=== PATIENT | male | born 1995 | race Caucasian/White ===

== ENCOUNTER 2022-04-13 22:36 | Emergency (ER) | payer BC, SELFPAY ==
[2022-04-13] MEDS ORDERED: Clindamycin/D5W 900 MG in Premix Bag 1 BAG IVPB SCH (23:45)
[2022-04-13] MEDS ORDERED: Morphine 4 MG/ML VIAL ONE (23:47)
[2022-04-13] MEDS ORDERED: Lorazepam 2 MG/ML VIAL ONE (23:48)
[2022-04-14] LABS: #Basophils 0.1 10x3/uL (0.0-0.2); #Eosinphils 0.1 10x3/uL (0.0-0.5); #Monocytes 1.3 10x3/uL (0.0-1.1); #Neutrophils 7.5 10x3/uL (1.5-8.4); %Basophils 0.4 % (0.0-2.0); %Lymphocytes 31.8 % (18.0-47.0); %Monocytes 9.9 % (0.0-10.0); %Neutrophils 56.4 % (40.0-75.0); Hemoglobin 15.8 g/dL (13.5-17.5); Mean Corpuscular HGB CONC 35.3 g/dL (32.0-36.0); Mean Corpuscular Hemoglobin 29.3 pg (27.0-33.0); Mean Corpuscular Volume 82.9 fl (81.2-95.1); Mean Platelet Volume 10.2 fl (7.4-10.4); Platelet Count 284 10x3/uL (150-450); RBC Distribution Width 12.5 % (11.5-14.5); Red Blood Cell (RBC) Count 5.39 10x6/uL (4.32-5.72); White Blood Cell (WBC) Count 13.4 10x3/uL (3.5-10.5)
[2022-04-14 00:16] LABS: ALT (SGPT) 21 U/L (8-55); AST (SGOT) 17 U/L (5-34); Albumin 4.4 g/dL (3.5-5.0); Alkaline Phosphatase 71 U/L (40-110); Anion Gap 12 mmol/L (10-20); BUN (Urea Nitrogen) 9 mg/dL (8.9-20.6); Bilirubin, Total 0.6 mg/dL (0.2-1.2); Calc. Creatinine Clearance 0 mL/min (70-130); Calcium 9.6 mg/dL (7.8-10.44); Carbon Dioxide 26 mmol/L (22-29); Chloride 103 mmol/L (98-107); Estimated GFR 96; Globulin 3.7 g/dL (2.4-3.5); Glucose 128 mg/dL (70-105); Potassium 3.3 mmol/L (3.5-5.1); Protein, Total 8.1 g/dL (6.0-8.3); Sodium 138 mmol/L (136-145)
[2022-04-14] MEDS ORDERED: Boostrix 0.5 ML (Tdap) VIAL ONE (00:31)
[2022-04-14] MEDS ORDERED: Potassium Chloride 20 MEQ TAB ONE (00:31)
== END 2022-04-14 01:00 | disposition home or self-care (01) ==
LOC: CSHERS 22:36
DX: L02.211 Cutaneous abscess of abdominal wall (principal); Z23 Encounter for immunization
CPT/HCPCS: 10060; 36415; 80053; 85025; 87040; 87070; 87205; 90471; 90715; 96365; 96375; J2060; J2270; J3490